=== PATIENT | female | born 1960 | race Caucasian/White ===

== ENCOUNTER 2017-05-18 11:50 | Outpatient (CLI) | payer BC | END 2017-05-18 11:51 | disposition home or self-care (01) | LOC: BICRAD 11:50 | PROVIDERS: ATTEND Family Medicine | DX: J20.9 Acute bronchitis, unspecified (principal); R05 Cough | CPT/HCPCS: 71046 ==

== ENCOUNTER 2019-06-06 14:55 | Outpatient (CLI) | payer BC ==
--- NOTE | 2019-06-06 16:19 | MRI ---
MRI Lower Ext Jt Rt WO Con History: Chronic hip pain Comparison: None. Findings: Bones: Abnormal stress edema of the anterior acetabulum with osteophyte formation. There is also linear stress edema within the right femoral neck in a longitudinal direction Few subcortical cysts of the left acetabulum. Small bilateral acetabular osteophyte formation. Mild narrowing of the pubic symphysis with osteophyte formation. Labrum: There is maceration of the anterior and superior labrum. Soft tissues: Moderate right joint effusion. Small right iliopsoas bursa effusion. Tendons: High-grade right gluteus medius and minimus tendinosis and partial tearing. The bilateral co mmon hamstring and semimembranosus tendons have high-grade undersurface and interstitial tearing. Muscles: No significant muscle atrophy. Impression: 1. Maceration right labrum with intrasubstance tearing of volume loss. 2. High-grade chondral loss and joint space narrowing of the right hip with osteophyte formation. 3. Findings of subcortical stress edema and subcortical cysts of the right acetabulum, degenerative i n nature. 4. Linear stress edema of the right femoral neck and intertrochanteric region. 5. High-grade undersurface and interstitial tearing of the common hamstring and semimembranosus tendo ns. 6. High-grade partial tearing and tendinosis gluteus medius and minimus tendons with greater trochant tao bursitis. Transcribed Date/Time: 06/06/2019 4:41 PM
== END 2019-06-06 14:56 | disposition home or self-care (01) ==
LOC: SCSMRI 14:55
PROVIDERS: ATTEND Orthopaedic Surgery
DX: M25.551 Pain in right hip (principal); M25.751 Osteophyte, right hip; M25.851 Other specified joint disorders, right hip; M24.151 Other articular cartilage disorders, right hip; R60.0 Localized edema; M85.68 Other cyst of bone, other site; S76.311A Strain of muscle, fascia and tendon of the posterior muscle group at thigh level, right thigh, initial encounter; M67.88 Other specified disorders of synovium and tendon, other site; M70.61 Trochanteric bursitis, right hip